=== PATIENT | male | born 1970 | race African-American/Black ===

== ENCOUNTER 2022-09-24 12:26 | Observation (INO) | payer OTHER ==
[~2022-09-24] VITALS: Ht 165.1 cm; Wt 69.9 kg
[2022-09-24 12:28] VITALS: BP 144/79; TEMP 98.5
[2022-09-24 13:11] LABS: POTASSIUM 3.9 mmol/L (3.6-5.2)
[2022-09-24 13:15] LABS: PLATELET COUNT 436 K/uL (142-355)
[2022-09-24 14:00] VITALS: BP 176/92
[2022-09-24 14:15] VITALS: BP 171/91
[2022-09-24] MEDS ORDERED: ZESTRIL30 MG PO ×2 (14:29→16:16)
[2022-09-24 14:30] VITALS: BP 163/88; BP 169/87
[2022-09-24 15:34] VITALS: BP 174/91; TEMP 98.4; Ht 165.1 cm; Wt 69.9 kg
[2022-09-24] MEDS ORDERED: AMLODIPINE BESYLATE PO (16:16)
[2022-09-24] MEDS ORDERED: LIPITOR40 MG PO (16:17)
[2022-09-24] MEDS ORDERED: CILOSTAZOL PO (16:18)
[2022-09-24] MEDS ORDERED: PIOG30TA PO (16:18)
[2022-09-24] MEDS ORDERED: METFORMIN HYD1000 MG PO ×2 (16:19→16:20)
[2022-09-24] MEDS ORDERED: GLYBURIDE2.5 MG PO (16:20)
[2022-09-24] MEDS ORDERED: LISI10TA11 PO (16:21)
[2022-09-24] MEDS ORDERED: FURO20TA67 PO (16:22)
[2022-09-24] MEDS ORDERED: CARV12.5 PO (16:22)
[2022-09-24] MEDS ORDERED: NITR0.4S2 SL (16:23)
[2022-09-24 20:30] VITALS: BP 132/87; TEMP 98.7
[2022-09-25 00:28] VITALS: BP 120/78; TEMP 98.6
[2022-09-25 04:28] VITALS: BP 150/82; TEMP 97.5
[2022-09-25 05:42] LABS: POTASSIUM 4.1 mmol/L (3.6-5.2)
[2022-09-25 08:02] VITALS: BP 164/83; TEMP 97.8
[2022-09-25] MEDS ORDERED: LISI20TA11 PO (09:57)
[2022-09-25] MEDS ORDERED: FURO40TA93 PO (09:58)
[2022-09-25] MEDS ORDERED: FURO20TA67 PO (10:00)
[2022-09-25] MEDS ORDERED: K-TAB20 MEQ PO (11:49)
== END 2022-09-25 11:20 | disposition home or self-care (01) ==
LOC: ED 12:26 → MED/SURG 14:15 → ED 14:15 → MED/SURG 09-25 11:20
PROVIDERS: Family Medicine; ADMIT Internal Medicine; ATTEND Internal Medicine
DX: I11.0 Hypertensive heart disease with heart failure (principal); E11.65 Type 2 diabetes mellitus with hyperglycemia; Z79.84 Long term (current) use of oral hypoglycemic drugs; R06.09 Other forms of dyspnea; I50.1 Left ventricular failure, unspecified; I49.3 Ventricular premature depolarization; D64.89 Other specified anemias; F10.10 Alcohol abuse, uncomplicated
CPT/HCPCS: 36415; 36600; 80053; 82150; 82550; 82805; 82948; 83690; 83880; 84484; 85027; 87635; 93005; 94760; 96372; 96374; 96376; 99220; 99284; G0378; J1650; J1940; U0003